=== PATIENT | female | born 1995 | race Caucasian/White ===

== ENCOUNTER 2019-03-22 23:14 | Emergency (ER) | payer SELFPAY ==
[~2019-03-22] VITALS: Ht 149.9 cm; Wt 59.4 kg
[2019-03-22 23:19] VITALS: Ht 149.9 cm; Wt 59.4 kg
[2019-03-23 00:28] LABS: BASOPHIL % 0.5 % (0-2); PLATELET COUNT 315 x10^3mcL (130-400); RED CELL DISTRIBUTION WIDTH 13.8 % (11.5-14.5)
[2019-03-23 00:43] LABS: CALCIUM 8.3 mg/dL (8.5-10.1); CARBON DIOXIDE 25.9 mmol/L (21-32); CHLORIDE SERUM 108 mmol/L (98-107); CREATININE SERUM 0.7 mg/dL (0.6-1.0); GFR1 > 60 mL/min; GLUCOSE SERUM 106 mg/dL (74-106); POTASSIUM SERUM 3.7 mmol/L (3.5-5.1); SODIUM SERUM 144 mmol/L (136-145)
[2019-03-23 00:48] LABS: ALBUMIN 3.9 g/dL (3.4-5.0); ALKALINE PHOSPHATASE 75 U/L (46-116); ALT/SGPT 32 U/L (14-59); AST/SGOT 15 U/L (15-37); BILIRUBIN TOTAL 0.3 mg/dL (0.20-1.00)
[2019-03-23 01:18] VITALS: BP 95/62
== END 2019-03-23 01:18 | disposition home or self-care (01) ==
LOC: ED 23:14
PROVIDERS: Emergency Medicine
DX: M94.0 Chondrocostal junction syndrome [Tietze] (principal)
CPT/HCPCS: 36415; J1885

== ENCOUNTER 2019-10-16 15:41 | Emergency (ER) | payer MEDICAID ==
[~2019-10-16] VITALS: Ht 154.9 cm; Wt 60.3 kg
[2019-10-16 15:50] VITALS: Ht 154.9 cm; Wt 60.3 kg
[2019-10-16 16:36] VITALS: BP 118/79
== END 2019-10-16 16:36 | disposition home or self-care (01) ==
LOC: ED 15:41
DX: J45.909 Unspecified asthma, uncomplicated (principal); Z76.0 Encounter for issue of repeat prescription

== ENCOUNTER 2020-01-09 16:07 | Emergency (ER) | payer MEDICAID ==
[~2020-01-09] VITALS: Ht 149.9 cm; Wt 61.2 kg
[2020-01-09 16:15] VITALS: BP 125/84; Ht 149.9 cm; Wt 61.2 kg
== END 2020-01-09 17:48 | disposition home or self-care (01) ==
LOC: ED 16:07
DX: R10.13 Epigastric pain (principal); J45.909 Unspecified asthma, uncomplicated